=== PATIENT | female | born 1980 | race Caucasian/White ===

== ENCOUNTER 2019-03-31 17:39 | Emergency (ER) | payer OTHER ==
[~2019-03-31] VITALS: Ht 172.7 cm; Wt 73.0 kg
[2019-03-31 17:42] VITALS: BP 146/66
[2019-03-31] MEDS ORDERED: famotidine 10mg tablet PO ONE (17:50)
[2019-03-31] MEDS ORDERED: famotidine 20mg tablet PO ONE (17:50)
[2019-03-31] MEDS ORDERED: diphenhydrAMINE 25mg capsule PO ONE (17:50)
[2019-03-31] MEDS ORDERED: FAMO-128 PO (17:53)
[2019-03-31] MEDS ORDERED: DIPH25CA83 PO (17:53)
== END 2019-03-31 18:17 | disposition home or self-care (01) ==
LOC: ER 17:40
DX: T78.40XA Allergy, unspecified, initial encounter (principal); Z88.2 Allergy status to sulfonamides; Z79.899 Other long term (current) drug therapy; X58.XXXA Exposure to other specified factors, initial encounter
CPT/HCPCS: 99283; Q0163

== ENCOUNTER 2019-10-14 10:10 | Emergency (ER) | payer OTHER ==
[~2019-10-14] VITALS: Ht 172.7 cm; Wt 72.7 kg
[~2019-10-14 10:10] MED LIST: DIPH25CA83 PO; FAMO-128 PO
[2019-10-14] MEDS ORDERED: normal saline 1000ML IV soln IVB STA (10:19)
[2019-10-14] MEDS ORDERED: methylPREDNISolone sod succ 125mg/2ml vial IV ONE (10:20)
[2019-10-14] MEDS ORDERED: diphenhydrAMINE 50 mg/ml inj IV ONE (10:20)
[2019-10-14] MEDS ORDERED: famotidine/PF 10 mg/ml inj IV ONE (10:20)
--- NOTE | 2019-10-14 11:23 | NUR ---
WILLIAM [phone] [facility] NUMBER
[2019-10-14 11:38] VITALS: BP 124/74
[2019-10-14] MEDS ORDERED: EPIN0.3P3 IM (12:24)
== END 2019-10-14 12:33 | disposition home or self-care (01) ==
LOC: ER 10:10
DX: T63.441A Toxic effect of venom of bees, accidental (unintentional), initial encounter (principal); T78.40XA Allergy, unspecified, initial encounter; Z88.0 Allergy status to penicillin; Z79.899 Other long term (current) drug therapy
CPT/HCPCS: 96374; 96375; 99284; J1200; J2930; J3490; J7030